=== PATIENT | female | born 1980 | race Caucasian/White ===

== ENCOUNTER → 2016-11-10 | Outpatient (CLI) | payer OTHER ==
[~2016-11-10] MED LIST: ACET-1311 PO; ACET-749 PO; MTR600X PO; PRENTAB26 PO
== END | disposition home or self-care (01) ==
LOC: C.LABSPEC 15:09
PROVIDERS: ATTEND Obstetrics & Gynecology
DX: Z34.83 Encounter for supervision of other normal pregnancy, third trimester (principal)

== ENCOUNTER 2016-11-29 19:07 | Inpatient (IN) | payer OTHER ==
[~2016-11-29] VITALS: Ht 180.3 cm; Wt 80.5 kg
[~2016-11-29 19:07] MED LIST changes: -ACET-1311 PO
[2016-11-29 19:58] VITALS: Ht 180.3 cm; Wt 80.5 kg
[2016-11-29] MEDS ORDERED: ACET-1311 PO (20:01)
[2016-11-29] MEDS ORDERED: LACTATED RINGER'S 1000ML 500 ML IV ONE (21:49)
[2016-11-29] MEDS ORDERED: ONDANSETRON 4 MG TAB PO PRN (22:00)
[2016-11-29] MEDS ORDERED: ACETAMINOPHEN 325 MG TAB PO PRN (22:00)
--- NOTE | 2016-11-29 22:23 | HISTORY & PHYSICAL EXAMINATION ---
DATE OF ADMISSION: 11/29/2016 CHIEF COMPLAINT: Possible ruptured membranes. HISTORY OF PRESENT ILLNESS: The patient is a 36-year-old 2, para 1. General health is good. Her due date is 12/08/2016. She has had course complicated by some episodes of early contractions which were treated with Procardia. Her blood type is O positive, history of rubella immune. She called with contractions and possible rupture of membranes, was told to come to maternity. In maternity, nitrazine was negative. There was no obvious leakage of fluid and she had two AmniSure tests done; one was equivocally positive. I checked her cervix was anterior, little bit more than 1 cm firm. There was no obvious leakage of fluids. She did state she was having some contractions every 3-5 minutes and that they were getting harder. Previous , she had went into spontaneous labor, two days prior to her due date. I discussed options with the patient. She essentially required no intervention and we have signed to monitor her overnight to see if she goes into labor or if her membranes will rupture frankly during our observation.
[2016-11-29] MEDS ORDERED: IV FLUIDS COMPLETED PRN (22:45)
[2016-11-30] MEDS ORDERED: DINOPROSTONE 10 MG INSERT PV STA (06:44)
[2016-11-30] MEDS ORDERED: LACTATED RINGER'S 1000ML 1,000 ML IV SCH (07:06)
[2016-11-30] MEDS ORDERED: LACTATED RINGER'S 1000ML 1,000 ML IV PRN (07:06)
[2016-11-30 07:50] LABS: HEMATOCRIT 34.8 % (37-47); MEAN CELL VOLUME 88.3 fL (80-100); MEAN CORPUSCULAR HEMOGLOBIN 29.7 pg (25-34); MEAN CORPUSCULAR HGB CONC 33.6 g/dl (32-36); MEAN PLATELET VOLUME 10.3 fL (7.4-10.4); PLATELET COUNT 181 K/uL (130-400); RED BLOOD COUNT 3.94 M/uL (4.2-5.4); WHITE BLOOD COUNT 9.64 K/uL (4.8-10.8)
[2016-11-30] MEDS: LACTATED RINGER'S 1000ML 1,000 ML IV SCH ×2 (10:18→12:57)
[2016-11-30] MEDS ORDERED: TERBUTALINE SULFATE 1 MG/ML VIAL ONE (12:52)
[2016-11-30] MEDS ORDERED: TERBUTALINE SULFATE 1 MG/ML VIAL SQ ONE (13:15)
[2016-11-30] MEDS ORDERED: BUPIVACAINE 0.25% 30 ML VIAL ONE (15:37)
[2016-11-30] MEDS ORDERED: EpHEDrine SULFATE INJ 50 MG/ML AMP ONE (15:38)
[2016-11-30] MEDS ORDERED: FENTANYL 2MCG/ML ROPIV 1.25MG/ML 100ML BAG EPI ONE (15:38)
[2016-11-30] MEDS ORDERED: FENTANYL CITRATE INJ 50 MCG/1 ML 2 ML VIAL ONE (15:38)
[2016-11-30] MEDS ORDERED: LACTATED RINGER'S 1000ML 500 ML IV PRN (16:35)
[2016-11-30] MEDS ORDERED: EpHEDrine SULFATE INJ 50 MG/ML AMP IV PRN (16:45)
[2016-11-30] MEDS ORDERED: NALOXONE HCL INJ 0.4 MG/1 ML VIAL/CARP IV PRN (16:45)
[2016-11-30] MEDS ORDERED: FENTANYL 2MCG/ML ROPIV 1.25MG/ML 100ML BAG EPI PRN (16:45)
[2016-11-30] MEDS ORDERED: OXYTOCIN 30 UNITS/500ML NSS IV ONE (18:17)
[2016-11-30] MEDS ORDERED: BENZOCAINE 20% AER SPR 82.5 GM CAN EXT PRN (18:45)
[2016-11-30] MEDS ORDERED: SUPERCREAM 0.870 % 15GM JAR EXT PRN (18:45)
[2016-11-30] MEDS ORDERED: HYDROCORTISONE ACETATE 25 MG SUPP PR PRN (18:45)
[2016-11-30] MEDS ORDERED: ACETAMINOPHEN/CODEINE 300/30MG TAB PO PRN ×2 (18:45)
[2016-11-30] MEDS ORDERED: OXYTOCIN 30 UNITS/500ML NSS IV PRN (18:45)
[2016-11-30] MEDS ORDERED: ACETAMINOPHEN 325 MG TAB PO PRN (18:45)
[2016-11-30] MEDS ORDERED: OXYCODONE/ACETAMINOPHEN 5-325 TAB PO PRN (18:45)
[2016-11-30] MEDS ORDERED: DIPHTHERIA/TETANUS/PERTUSSIS 0.5 ML SYR/VIAL IM. ONE (18:45)
[2016-11-30] MEDS ORDERED: LANOLIN OINT EXT PRN ×2 (18:45)
--- NOTE | 2016-11-30 21:03 | Anesthesia Procedure Note ---
Anesthesia Epidural Removal Nt Date & Time Nov 30, 2016 at 21:02 Vital Signs Pain Intensity: 0.0 Notes Mental Status: alert / awake / arousable, participated in evaluation Nausea / Vomiting: adequately controlled Pain: adequately controlled Airway Patency, RR, SpO2: stable & adequate BP & HR: stable & adequate Hydration State: stable & adequate Neuraxial Anesthesia: was administered, sensory block is resolved Anesthetic Complications: no major complications apparent, pt satisfied with anesthetic care Epidural: removed without complications, with tip intact
[2016-11-30 21:30] VITALS: BP 133/74; PULSE 104; TEMP 36.8
[2016-11-30] MEDS: DOCUSATE SODIUM 100 MG CAP PO SCH (21:41)
[2016-12-01] MEDS: IBUPROFEN 600 MG TAB PO PRN ×3 (00:20→15:36)
[2016-12-01 00:30] VITALS: BP 114/72; PULSE 94; TEMP 36.9
--- NOTE | 2016-12-01 02:06 | DELIVERY SUMMARY ---
DATE OF OPERATION: 11/30/2016 Mrs. Izquierdo is a 36-year-old 2, para 2. Her blood type is O positive, rubella immune, due date is 12/08/2016, vaginal beta strep negative. She was admitted on 11/29/2016, questionable rupture of membranes. She stated that she had some fluid leaking down her leg at home. When she came to the hospital, heart rate monitor looked good and one of the AmniSure tests was just barely positive. We let her contract on her own overnight. The following day she had not made any significant progress. We discussed the results of the tests and decided to diagnose her as having ruptured membranes and go ahead with induction. We used the Cervidil tape. With the tape, she began to contract regularly. She eventually got to the point where she had an 8-minute deceleration, tape had to be removed, placed on oxygen, given 0.25 mg of terbutaline. Heart rate came back nicely and then she contracted on her own following this without any stimulation at all. Eventually, when she was about 5 cm, the contractions were very painful, and she requested and received epidural anesthesia. She obtained good pain relief and we eventually ruptured her membranes surgically. Fluid was clear. She went to full dilatation and in under 10 minutes pushed out a live female infant DARLENE over an intact perineum. Infant was suctioned through the mouth and the nose. Shoulders were delivered without difficulty. Cord was clamped, cut by the father. Cord blood was taken. With IV Pitocin running, the placenta was removed intact. Inspection of the perineum revealed a first-degree laceration with a vaginal hematoma at the top and to the left of the laceration. I entered the hematoma with the scissors and drained it and then oversewed the hematoma, approximated the vaginal mucosa to beyond the hymenal ring. I used an interrupted suture of heavy Vicryl to approximate the bulbocavernosus muscle, separate interrupted Vicryl to approximate the perineal body, then a running subcuticular suture to approximate the perineal skin edges. Following this, vaginal exam including rectovaginal examination revealed no hematoma formation or sponges in the vagina. Estimated blood loss was 200 mL. Estimated Apgars were 8 and 9 respectively. I attest to the content of the Intraoperative Record and any orders documented therein. Any exceptions are noted below. MTDD
[2016-12-01 04:30] VITALS: BP 113/68; PULSE 69; TEMP 36.7
[2016-12-01 06:57] LABS: HEMATOCRIT 35.9 % (37-47)
[2016-12-01 07:40] VITALS: BP 92/60; PULSE 80; TEMP 37.5; O2SAT 100
[2016-12-01] MEDS ORDERED: PRENATAL VITAMIN TAB PO SCH (08:00)
[2016-12-01] MEDS ORDERED: FERROUS SULFATE 325 MG TAB PO SCH (08:00)
[2016-12-01] MEDS: DOCUSATE SODIUM 100 MG CAP PO SCH (08:00)
--- NOTE | 2016-12-01 08:43 | Progress Note ---
Subjective Dec 01, 2016. Subjective conversation w/ patient Ambulation: ambulating normally Voiding: no voiding problems Passing Gas: Yes Diet Tolerance: Regular Diet Lochia: Small Feeding Type: Breast Feeding Review of Systems Constitutional: + fever Objective Vital Signs Date Time Temp Pulse Resp B/P Pulse Ox O2 Delivery O2 Flow Rate FiO2 12/01/16 07:40 37.5 80 16 92/60 100 Room Air 12/01/16 04:30 36.7 69 20 113/68 Room Air 12/01/16 00:30 36.9 94 20 114/72 Room Air 12/01/16 00:30 Room Air 11/30/16 21:30 36.8 104 20 133/74 Room Air Physical Exam General Appearance: WELL-APPEARING Respiratory/Chest: lungs clear Abdomen: non tender Fundus: Firm, Non-Tender Extremities: no pedal edema, no calf tenderness Laboratory Results Last 24 Hours Test 12/01/16 06:37 Hemoglobin 12.0 g/dL Hematocrit 35.9 % Assessment and Plan Post- Day#: 1
[2016-12-01 12:00] VITALS: BP 92/60; PULSE 91; TEMP 36.4; O2SAT 97
--- NOTE | 2016-12-01 16:00 | Discharge Instructions ---
Discharge Instructions Admission Reason for Admission: LABOR Discharge Discharge Diagnosis / Problem: ruptured membranes at term Discharge Goals Goal(s): Routine recovery after delivery Activity Recommendations Activity Limitations: as noted below ACTIVITY RECOMMENDATIONS: * Gradual return to full activity over the next 2-3 weeks. * No lifting - nothing heavier than baby over the next 2-3 weeks. * Do not engage in vigorous exercise, sexual activity or sports until cleared by your physician. * Do not drive or operate any motorized equipment until cleared by your physician. * You may shower/bathe daily. DIET: Resume Previous Diet If Breast-feeding: * Increase caloric intake by 500 calories, eat 3 well balanced meals, 2 high protein snacks a day and drink 6-8 8oz. glasses of fluid per day. BREAST CARE: If you are not breast feeding: * Wear a supportive bra 24 hours a day for one to two weeks. * Avoid stimulating your breasts and nipples as much as possible during the first few weeks after delivery. * When taking a shower, have the warm water hit your back, not breasts. * When your breasts feel full, apply ice packs. Usually three to four times a day helps ease the discomfort. * Take a mild pain medication (Tylenol / Motrin) when you are uncomfortable. If breast feeding: * Use breast milk to lubricate nipples. Lansinoh cream may be used for sore nipples. You do not need to remove cream prior to breast feeding. If using a different brand of cream, check the label for directions regarding removal of cream prior to nursing. * Wear a supportive bra. * If having problems with breasts or breast feeding, call a it web development consultant or your health care provider. OVER THE COUNTER MEDICATION: * For discomfort or pain, you may use Acetaminophen (Tylenol), Ibuprofen (Advil ), or Naproxen (Aleve) following the package directions. * For constipation you may use Colace following the package directions. SPECIAL CARE INSTRUCTIONS: * Vaginal rest (no tampons, douching, intercourse) until after doctor 's visit. * control as discussed with doctor. * Verbalizes understanding of car seat law as reviewed with patient nursing. * Car Seat hand-out given and reviewed with patient by nursing. * Shaken baby information reviewed with patient by nursing. Call you doctor if: * Temperature greater than or equal to 100.4 degrees F or 38.0 degrees C. Take your temperature twice daily for a week. * Bleeding becomes heavier than the heaviest part of your period - saturating a sanitary pad within an hour. * Passing large clots. * Bleeding has a foul smelling odor. * Signs and symptoms of phlebitis: leg pain, warm, red or swollen area on leg. * "Baby Blues" lasting longer than two weeks. ++ If you have had a and incision has increased pain, redness, swelling, presence of any drainage, or if the incision starts to open up. If you have any questions or concerns, call your health care practitioner at [phone]. FOLLOW-UP VISIT: Please call the office at to schedule a 6 week examination. . Current Hospital Diet Patient's current hospital diet: Regular OB Diet Discharge Diet Recommended Diet: Regular Diet Pending Studies Studies pending at discharge: no Medical Emergencies . Who to Call and When: Medical Emergencies: If at any time you feel your situation is an emergency, please call 911 immediately. . Non-Emergent Contact Non-Emergency issues call your: [facility] Call Non-Emergent contact if: temperature is above 100.5 . . "Provider Documentation" section prepared by Melvin Shultz. VTE Core Measure Inpt VTE Proph given/why not?: Treatment not indicated
[2016-12-01 16:40] VITALS: BP 103/66; PULSE 90; TEMP 36.7; O2SAT 99
[2016-12-01] MEDS ORDERED: BISACODYL 5 MG TABEC PO SCH (20:00)
[2016-12-01 20:14] VITALS: BP_DIAS 66; PULSE 90; TEMP 36.7
[2016-12-02] MEDS ORDERED: BISACODYL 10 MG SUPP PR PRN (07:00)
== END 2016-12-01 20:14 | disposition home or self-care (01) | DRG 775 ==
LOC: C.LD 19:07 → C.OPB 19:07 → C.LD 11-30 07:08 → C.OBG 11-30 20:59
PROVIDERS: ADMIT Obstetrics & Gynecology; ATTEND Obstetrics & Gynecology
PROC: 0U9G7ZZ Drainage of Vagina, Via Natural or Artificial Opening (ICD-10-PCS; principal; 2016-11-30)
PROC: 0HQ9XZZ Repair Perineum Skin, External Approach (ICD-10-PCS; principal; 2016-11-30)
PROC: 10907ZC Drainage of Amniotic Fluid, Therapeutic from Products of Conception, Via Natural or Artificial Opening (ICD-10-PCS; principal; 2016-11-30)
PROC: 10E0XZZ Delivery of Products of Conception, External Approach (ICD-10-PCS; principal; 2016-11-30)
PROC: 3E0P7GC Introduction of Other Therapeutic Substance into Female Reproductive, Via Natural or Artificial Opening (ICD-10-PCS; principal; 2016-11-30)
DX: O42.02 Full-term premature rupture of membranes, onset of labor within 24 hours of rupture (principal); O71.7 Obstetric hematoma of pelvis; Z37.0 Single live birth; O76 Abnormality in fetal heart rate and rhythm complicating labor and delivery; O70.0 First degree perineal laceration during delivery; Z3A.38 38 weeks gestation of pregnancy; Z23 Encounter for immunization

== ENCOUNTER → 2017-01-12 | Outpatient (CLI) | payer OTHER ==
[~2017-01-12] MED LIST changes: +ACET-1311 PO; -ACET-749 PO; -MTR600X PO
== END | disposition home or self-care (01) ==
LOC: C.PAPS 14:56
PROVIDERS: ATTEND Obstetrics & Gynecology
DX: Z39.2 Encounter for routine postpartum follow-up (principal)